=== PATIENT | female | born 1965 | race Caucasian/White ===

== ENCOUNTER → 2019-05-09 | Outpatient (CLI) | payer MEDICARE ==
[~2019-05-09] MED LIST: CARI350T PO; OXYC-307 PO
== END | disposition home or self-care (01) ==
LOC: CVU 14:08
PROVIDERS: ATTEND Internal Medicine Cardiovascular Disease
DX: I35.1 Nonrheumatic aortic (valve) insufficiency (principal); Z87.891 Personal history of nicotine dependence
CPT/HCPCS: 93306

== ENCOUNTER → 2019-11-12 | Outpatient (CLI) | payer MEDICARE | END | disposition home or self-care (01) | LOC: RAD 09:40 → EDSTATUS 10:00 | CPT/HCPCS: 72082 ==